=== PATIENT | male | born 1945 | race Caucasian/White ===

== ENCOUNTER 2017-04-20 08:30 | Day surgery (SDC) | payer OTHER ==
--- NOTE | ~2017-04-20 | EGD ---
EGD REPORT [facility] [address] [place] [address] NAME: VENU BOB : [birth year] STATUS : REG [facility] [place] PAT#: [id number] AGE: 71 ADM/REG DATE : 04/20/17 MR#: [id number] REPORT SERV DATE: 04/20/17 DICTATED BY: HELDER RAPP DATE: 04/20/17 REPORT STATUS : Draft TRANSCRIBED BY: [facility] DATE: 04/20/17 [facility] Center Patient Name: Venu Bob Date of : 1945 Attending MD: HELDER RAPP MD Procedure Date No Time: 04/20/2017 Procedure: Colonoscopy Indications: Follow-up for history of adenomatous polyps in the colon, Chronic diarrhea which is now resolved, History of collagenous colitis Referring MD: MARIE REN, VANESSA KELLY, HANNAH POLLOCK IV, ALYSHA GODOY, RICHARD SOLIS, ANNIE HERMAN JR., MD, RICHARD TRAN JR. Medicines: Propofol per Anesthesia Complications: No immediate complications. Estimated blood loss: None. Procedure: Pre-Anesthesia Assessment: - After reviewing the risks and benefits, the patient was deemed in satisfactory condition to undergo the procedure. - Prior to the procedure, a History and Physical was performed, and patient medications and allergies were reviewed. The patient's tolerance of previous anesthesia was also reviewed. The risks and benefits of the procedure and the sedation options and risks were discussed with the patient. All questions were answered, and informed consent was obtained. Prior Anticoagulants: The patient has taken no previous anticoagulant or antiplatelet agents. ASA Grade Assessment: III - A patient with severe systemic disease. After reviewing the risks and benefits, the patient was deemed in satisfactory condition to undergo the procedure. After I obtained informed consent, the scope was passed under direct vision. Throughout the procedure, the patient's blood pressure, pulse, and oxygen saturations were monitored continuously. The CF [id number] was introduced through the anus and advanced to the cecum, identified by appendiceal orifice and ileocecal valve. The colonoscopy was somewhat difficult due to significant looping and a tortuous colon. Successful completion of the procedure was aided by straightening and shortening the scope to obtain bowel loop reduction. The ileocecal valve and appendiceal orifice were photographed. The patient tolerated the procedure well. The quality of the bowel preparation was adequate to EGD REPORT [address] [address] NAME: VENU BOB : [birth year] STATUS : REG [facility] [place] PAT#: [id number] AGE: 71 ADM/REG DATE : 04/20/17 MR#: [id number] REPORT SERV DATE: 04/20/17 DICTATED BY: HELDER RAPP DATE: 04/20/17 REPORT STATUS : Draft TRANSCRIBED BY: [employer] DATE: 04/20/17 identify polyps 6 mm and larger in size. The bowel preparation used was polyethylene glycol (PEG). Scope withdrawal time was 7 minutes. Findings: The perianal and digital rectal examinations were normal. Pertinent negatives include normal sphincter tone. Non-bleeding internal hemorrhoids were found during retroflexion and were medium-sized and Grade I (internal hemorrhoids that do not prolapse). Multiple small-mouthed diverticula were found in the sigmoid colon, in the descending colon, in the transverse colon and in the ascending colon. Biopsies were taken with a cold forceps for histology from the ascending and descending colon. Estimated blood loss: none. The exam was otherwise without abnormality. Impression: - Non-bleeding internal hemorrhoids. - Moderate diverticulosis in the sigmoid colon, in the descending colon, in the transverse colon and in the ascending colon. Biopsied. - The examination was otherwise normal. - History of collageous colitis. Recommendation: - Discharge patient to home (ambulatory). - High fiber diet indefinitely. - Continue present medications. - Await pathology results. - Repeat colonoscopy in 5 years for surveillance. - Turn in stool studies if diarrhea recurs. - Return to GI clinic PRN. - Patient has a contact number available for emergencies. The signs and symptoms of potential delayed complications were discussed with the patient. Return to normal activities tomorrow. Written discharge instructions were provided to the patient. Procedure Code(s): --- Professional --- 75575, Colonoscopy, flexible, proximal to splenic flexure; with biopsy, single or multiple Diagnosis Code(s): --- Professional --- K64.0, First degree hemorrhoids K57.30, Diverticulosis of large intestine without perforation or abscess without bleeding Z86.010, Personal history of colonic polyps K52.9, Noninfective gastroenteritis and colitis, unspecified EGD REPORT [facility] [address] [address] NAME: VENU BOB : [birth year] STATUS : [facility] [place] PAT#: [id number] AGE: 71 ADM/REG DATE : 04/20/17 MR#: [id number] REPORT SERV DATE: 04/20/17 DICTATED BY: HELDER RAPP DATE: 04/20/17 REPORT STATUS : Draft TRANSCRIBED BY: [employer] DATE: 04/20/17 CPT copyright 2013 [employer]. All rights reserved. The codes documented in this report are preliminary and upon silk spotter review may be revised to meet current compliance requirements. HELDER RAPP MD 04/20/2017 11:36 AM This report has been signed electronically. Number of Addenda: 0 Note Initiated On: 04/20/2017 10:59 AM Scope Withdrawal Time 0 hours 7 minutes 3 seconds [address] [id number]
[~2017-04-20 08:30] MED LIST: ACCUNEB INH; ADVAIR250 INH; ALBUTEROL0.083 % INH; ASAB PO; CELEXA20 PO; CHANTIX1 PO; CIP5 PO; DECLOMYCIN300 MG OR; FLOMAX4 PO; FLONASE NAS; FLUCON1 PO; KRILLOIL PO; LOP25 PO; LOP50 PO; LOTE5 PO; MARI2.5 PO; MEG40 PO; MIRALAXPKT PO; MUCINEX600 MG PO; MULTIPLE VIT PO; NEUR300 PO; NYS500UDL PO; PRILOSEC40 MG PO; REM15 PO; REMICADE IV; SAW PALMETT2 PO; SPIRIVA INH; SYMBICORT 160/41 INH INH; TOPXL25 PO; ULTRAM50 PO; V5 PO; VIB100 PO; X5 PO; ZANTAC150 MG PO; ZOCOR40 PO; ZOCOR80 MG PO; ZOFRAN4 PO; ZYVOXPO PO
== END 2017-04-20 23:59 | disposition home or self-care (01) ==
LOC: DMU 08:30
PROVIDERS: Internal Medicine Gastroenterology
PROC: 0DBK8ZX Excision of Ascending Colon, Via Natural or Artificial Opening Endoscopic, Diagnostic (ICD-10-PCS; 2017-04-20)
PROC: 0DBM8ZX Excision of Descending Colon, Via Natural or Artificial Opening Endoscopic, Diagnostic (ICD-10-PCS; principal; 2017-04-20 10:15)
DX: K64.0 First degree hemorrhoids (principal); K57.30 Diverticulosis of large intestine without perforation or abscess without bleeding; J44.9 Chronic obstructive pulmonary disease, unspecified; F17.210 Nicotine dependence, cigarettes, uncomplicated; N18.3 Chronic kidney disease, stage 3 (moderate); Z88.1 Allergy status to other antibiotic agents; Z95.5 Presence of coronary angioplasty implant and graft; Z86.010 Personal history of colon polyps; Z98.890 Other specified postprocedural states
CPT/HCPCS: 88305